=== PATIENT | female | born 1955 | race Asian ===

== ENCOUNTER 2017-03-02 09:33 | Emergency (ER) | payer OTHER ==
[~2017-03-02] VITALS: Ht 157.5 cm; Wt 48.6 kg
[2017-03-02] MEDS ORDERED: RHEUMATREX (09:39)
[2017-03-02] MEDS ORDERED: ALBU8HFA IH (09:39)
[2017-03-02] MEDS ORDERED: MONT10TA21 PO (09:39)
[2017-03-02] MEDS ORDERED: DICL4100G TP (09:39)
[2017-03-02] MEDS ORDERED: ZOLP5 PO (09:39)
[2017-03-02] MEDS ORDERED: ADV500 IH (09:39)
[2017-03-02] MEDS ORDERED: FLUT16H NASAL (09:39)
[2017-03-02 11:00] VITALS: BP 117/70
[2017-03-02] MEDS ORDERED: KETOROLAC TROMETHAMINE 60 MG/2 ML VIAL IM ONE (11:00)
== END 2017-03-02 11:27 | disposition home or self-care (01) ==
LOC: EMS 09:35
DX: S20.212A Contusion of left front wall of thorax, initial encounter (principal); W06.XXXA Fall from bed, initial encounter; Y93.89 Activity, other specified; Y99.8 Other external cause status; Y92.89 Other specified places as the place of occurrence of the external cause
CPT/HCPCS: 71020; 96372; 99284; J1885

== ENCOUNTER 2023-02-05 07:11 | Day surgery (SDC) | payer MEDICARE, OTHER ==
[~2023-02-05] VITALS: Ht 154.9 cm; Wt 52.2 kg
[~2023-02-05 07:11] MED LIST: ADV500 IH; ALBU18HF12 IH; FLUT16SP NASAL; METH2.5 PO; MYCO250C27 PO; RHEUMATREX; ZOLP-280 PO
[2023-02-05] MEDS ORDERED: LIDOCAINE 2% 11 ML JELLY TP ONE (07:12)
[2023-02-05] MEDS ORDERED: BENZOCAINE 20% 50 MCG/SPRAY 57 GM TP ONE (07:12)
[2023-02-05] MEDS ORDERED: ALBUTEROL SULFATE 2.5 MG/0.5 ML NEB SOLUTION NEB ONE (07:12)
[2023-02-05] MEDS ORDERED: LIDOCAINE 4% 50 ML SOLUTION TP ONE (07:12)
[2023-02-05 07:30] LABS: COVID AG,FIA SOURCE NASAL SWAB
[2023-02-05] MEDS ORDERED: SODIUM CHLORIDE 0.9% 1,000 ML ONE (08:11)
[2023-02-05] MEDS ORDERED: FentaNYL CITRATE PF 100 MCG/2 ML VIAL ONE (08:12)
[2023-02-05] MEDS ORDERED: MIDAZOLAM HCL 2 MG/2 ML VIAL ONE (08:12)
[2023-02-05] MEDS ORDERED: SODIUM CHLORIDE 0.9% 1,000 ML IV ONE (08:30)
[2023-02-05] MEDS ORDERED: MethylPREDNISolone SOD SUCC 125 MG/2 ML VIAL ONE (09:57)
[2023-02-05] MEDS ORDERED: MethylPREDNISolone SOD SUCC 125 MG/2 ML VIAL IVP ONE (10:15)
== END 2023-02-05 11:45 | disposition home or self-care (01) ==
LOC: SURGERY 07:11
PROVIDERS: ATTEND Internal Medicine Critical Care Medicine
DX: R05.3 Chronic cough (principal); J98.09 Other diseases of bronchus, not elsewhere classified; J98.8 Other specified respiratory disorders; R91.1 Solitary pulmonary nodule; Z20.822 Contact with and (suspected) exposure to COVID-19
CPT/HCPCS: 31623; 88112; 87101; 87220; 87070; 31624; 94640; 71045; 87015; 87426; 87206; J3010; J2250; J2930; Q9967; J7030; C9803; J7613; Z7610